=== PATIENT | male | born 1960 | race Caucasian/White ===

== ENCOUNTER → 2016-10-09 | Outpatient (CLI) | payer BC ==
--- NOTE | 2016-10-09 16:29 | US ---
EXAMINATION TYPE: US kidneys/renal and bladder DATE OF EXAM: 10/09/2016 4:15 PM COMPARISON: See PACS CLINICAL HISTORY: Renal Cyst N28.1. EXAM MEASUREMENTS: Right Kidney: 10.1 x 5.4 x 5.5 cm Left Kidney: 11.0 x 5.7 x 6.7 cm Findings: Right Kidney: No hydronephrosis or masses seen Left Kidney: There are 3 hypoechoic nodules within the left kidney. 2 largest measures 4 and 4.7 cm c ompatible simple cyst. The smaller lesion is too small to characterize and measures 1.5 cm. Bladder: not distended, not well visualized There is no evidence for hydronephrosis at this point in time. No nephrolithiasis is seen. The urin per bladder is anechoic. Bilateral ureteral jets are seen. IMPRESSION: There are 2 simple cyst within the left kidney and a smaller 1.5 cm lesion which does not meet the cr iteria of a simple cyst appears to contain an internal septation. Likely representing Bosniak classif ication 2 cyst.
== END | disposition home or self-care (01) ==
LOC: RADUSMAIN 15:45
PROVIDERS: ATTEND Urology
DX: N28.1 Cyst of kidney, acquired (principal)
CPT/HCPCS: 76770

== ENCOUNTER → 2017-11-12 | Outpatient (CLI) | payer BC ==
--- NOTE | 2017-11-12 12:50 | US ---
EXAMINATION TYPE: US kidneys/renal and bladder DATE OF EXAM: 11/12/2017 COMPARISON: US CLINICAL HISTORY: Renal Cyst N28.1; left renal cysts; prostatectomy due to CA EXAM MEASUREMENTS: Right Kidney: 10.9 x 7.3 x 4.5 cm Left Kidney: 11.2 x 6.0 x 6.1 cm Post Void Residual Volume: 7.8 mL Right Kidney: lower cortical cyst = 1.2 x 1.1 x 1.1cm Left Kidney: multiple cysts superior pole with largest at cortex = 5.2 x 4.1 x 4.5cm Bladder: wnl Bilateral Jets seen: Yes Normal Post Void Residual: Yes IMPRESSION: Bilateral renal cysts.
== END | disposition home or self-care (01) ==
LOC: RADUSWWP 08:04
PROVIDERS: ATTEND Urology
DX: N28.1 Cyst of kidney, acquired (principal)
CPT/HCPCS: 76770

== ENCOUNTER → 2018-12-19 | Outpatient (CLI) | payer BC ==
--- NOTE | 2018-12-19 15:05 | CT ---
EXAMINATION TYPE: CT angio chest DATE OF EXAM: 12/19/2018 COMPARISON: 09/09/2015 HISTORY: known thoracic aneurysm CT DLP: 483.2 mGycm CONTRAST: CTA thoracic aorta with 3-D reconstruction is performed and with IV Contrast, patient injected with 1 00 mL of Isovue 370. Contrast CTA of the thoracic aorta was performed from the lung apex through the upper abdomen. 3D re construction imaging obtained at a separate workstation. CT Chest: THORACIC AORTA: Ascending thoracic aortic aneurysm measures 4.3 cm AP dimension versus 4 cm previousl y Mild atheromatous changes seen. There is no evidence for dissection or periaortic collection. LUNGS: The lungs are clear and free of infiltrate or atelectasis. No pulmonary nodule or mass is det ected. No pleural effusion or CT evidence of interstitial lung disease. MEDIASTINUM: No evidence for mediastinal hematoma. The heart is not enlarged. No evidence for med iastinal mass or adenopathy. HILAR STRUCTURES: No evidence for mass. No hilar adenopathy is appreciated. OTHER: No significant abnormality. IMPRESSION- Slight interval progression of ascending thoracic aortic aneurysm without complicating factor.
== END | disposition home or self-care (01) ==
LOC: RADCTMAIN 13:25
PROVIDERS: ATTEND Internal Medicine Interventional Cardiology
DX: I71.2 Thoracic aortic aneurysm, without rupture (principal)
CPT/HCPCS: 82565; 84520; 71275; 36415; Q9967

== ENCOUNTER → 2018-12-19 | Outpatient (CLI) | payer BC ==
--- NOTE | 2018-12-19 15:26 | US ---
EXAMINATION TYPE: US renals and bladder DATE OF EXAM: 12/19/2018 COMPARISON: NONE CLINICAL HISTORY: N28.1 renal cyst. Renal cysts EXAM MEASUREMENTS: Right Kidney: 11.0 x 5.7 x 5.9 cm Left Kidney: 12.3 x 5.3 x 5.5 cm Right Kidney: cystic area = 1.4 x 1.1 x 1.4cm Left Kidney: 2 adjacent cysts vs. septated cyst upper pole = 7.8 x 4.8 x 5.6cm Bladder: Limited by incomplete distention demonstrates no definite abnormality. Bilateral Jets seen: yes IMPRESSION: No hydronephrosis or nephrolithiasis bilaterally. Bilateral simple appearing renal cysts. The largest measures 7.8 cm increased in size from the prior exam where it measured 5.2 cm.
== END | disposition home or self-care (01) ==
LOC: RADUSMAIN 13:31
PROVIDERS: ATTEND Urology
DX: N28.1 Cyst of kidney, acquired (principal)
CPT/HCPCS: 76770

== ENCOUNTER 2019-05-07 08:55 | Emergency (ER) | payer BC ==
[2019-05-07 09:03] VITALS: RESP 16
[2019-05-07] MEDS ORDERED: KETOROLAC 60 MG/2 ML VIAL IM STA (09:20)
[2019-05-07] MEDS ORDERED: ACET/COD 300 MG/30 MG STARTER PACK 6 TAB BTL PO STA (09:20)
[2019-05-07] MEDS ORDERED: ORPHENADRINE 30 MG/ML 2 ML VIAL IM STA (09:20)
--- NOTE | 2019-05-07 09:24 | ED ---
Upper Extremity HPI - General Chief Complaint: Extremity Injury, Upper Stated Complaint: shoulder injury Time Seen by Provider: 05/07/19 09:04 Source: patient, RN notes reviewed, old records reviewed Mode of arrival: ambulatory Limitations: no limitations - History of Present Illness Initial Comments: This Patient is a 58-year-old male who presents mention her in today for complaints of right shoulder injury. Patient reports he had a history of chronic right shoulder dislocations and he had a surgical repair of his for this in 2007. Patient states that he was walking his large dog yesterday and the dog was pulling the leash. Patient states that since that time has had pain with any range of motion of the shoulder. He states that the pain seemed to get worse a few hours after he took the dog walking. Patient reports that his shoulder feels swollen. States he is having no numbness or tingling down the arm. He denies any elbow pain or hand or wrist pain. Patient is right-handed. - Related Data Home Medications Medication Instructions Recorded Confirmed Aspirin 81 mg PO DAILY 07/29/15 07/30/15 Lisinopril [Zestril] 10 mg PO DAILY 07/29/15 07/30/15 Omeprazole [PriLOSEC] 20 mg PO AC-BRKFST 07/29/15 07/30/15 metFORMIN HCL [Glucophage] 500 mg PO BID 07/29/15 07/30/15 Previous Rx's Medication Instructions Recorded HYDROcodone/APAP 5-325MG [[place] 1 tab PO Q6HR PRN #30 tab 07/31/15 5-325] Cyclobenzaprine [Flexeril] 10 mg PO TID #12 tab 05/07/19 Naproxen [EC-Naprosyn] 500 mg PO BID #20 tablet. 05/07/19 traMADol HCL [Ultram] 50 mg PO Q4HR PRN 3 Days #18 tab 05/07/19 Allergies Allergy/AdvReac Type Severity Reaction Status Date / Time No Known Allergies Allergy Verified 05/07/19 09:03 Review of Systems ROS Statement: Those systems with pertinent positive or pertinent negative responses have been documented in the HPI. ROS Other: All systems not noted in ROS Statement are negative. Past Medical History Past Medical History: Cancer, Diabetes Mellitus, GERD/Reflux, Hypertension Additional Past Medical History / Comment(s): hx. prostate cancer 2013 History of Any Multi-Drug Resistant Organisms: None Reported Past Surgical History: Cholecystectomy, Hernia Repair, Orthopedic Surgery, Prostate Surgery Additional Past Surgical History / Comment(s): prostatectomy, right shoulder surg., ELBOW SURGERY 07/30/2015 Past Anesthesia/Blood Transfusion Reactions: No Reported Reaction Past Psychological History: No Psychological Hx Reported Smoking Status: Never smoker Past Alcohol Use History: Occasional Past Drug Use History: None Reported - Past Family History Father Brother(s) Family Medical History: Cancer Additional Family Medical History / Comment(s): prostate General Exam - General Exam Comments Initial Comments: This is a 58-year-old male. Alert and oriented. No distress. Limitations: no limitations General appearance: alert, in no apparent distress Head exam: Present: atraumatic, normocephalic, normal inspection Eye exam: Present: normal appearance, PERRL, EOMI. Absent: scleral icterus, conjunctival injection, periorbital swelling ENT exam: Present: normal exam, mucous membranes moist Neck exam: Present: normal inspection Respiratory exam: Present: normal lung sounds bilaterally. Absent: respiratory distress, wheezes, rales, rhonchi, stridor Extremities exam: Present: normal inspection, full ROM, normal capillary refill. Absent: tenderness, pedal edema, joint swelling, calf tenderness Right Shoulder Exam: Present: swelling (over deltoid). Absent: normal inspection, full ROM (unable to abduct greated than 10 degrees. ) Elbow exam: Present: normal inspection, full ROM Forearm Wrist exam: Present: normal inspection, full ROM Hand Wrist exam: Present: normal inspection, full ROM Neuro motor exam: Present: wrist extension intact, thumb opposition intact, thumb IP flexion intact, thumb adduction intact, fingers 2-5 abduction intact Vascular: Present: normal capillary refill Back exam: Present: normal inspection Neurological exam: Present: alert, oriented X3, CN II-XII intact Psychiatric exam: Present: normal affect, normal mood Skin exam: Present: warm, dry, intact, normal color. Absent: rash Course Vital Signs 05/07/19 08:59 Temperature 98.2 F Pulse Rate 82 Respiratory 16 Rate Blood Pressure 166/94 O2 Sat by Pulse 98 Oximetry Medical Decision Making - Medical Decision Making This is a 58-year-old male presents today for complaints of right shoulder pain. At this time Patient reports it started after he was walking his dog and struck pulled the shoulder. X-ray was reviewed and negative for fracture. Extensive surgical changes noted. Patient was sent is on pulse or sensation of the arm. Patient was placed in an arm sling. 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 All questions answered return parameters were discussed. - Radiology Data Radiology results: report reviewed Acute fracture or dislocation of the right shoulder. Old deformity of the superior lateral femoral head is noted. Extensive superficial change within the shoulder with 4 migdalia in the glenohumeral joint. Disposition Clinical Impression: Rotator cuff disorder Disposition: HOME SELF-CARE Condition: Good Instructions (If sedation given, give patient instructions): Rotator Cuff Tendinitis (ED) Additional Instructions: Patient is advised to follow-up with primary care physician and ortho. Patient should return to the emergency department if any alarming signs or symptoms occur. Prescriptions: Naproxen [EC-Naprosyn] 500 mg PO BID #20 tablet. Cyclobenzaprine [Flexeril] 10 mg PO TID #12 tab traMADol HCL [Ultram] 50 mg PO Q4HR PRN 3 Days #18 tab PRN Reason: Pain Is patient prescribed a controlled substance at d/c from ED?: No Referrals: Lia Gomez MD [Primary Care Provider] - 1-2 days Denzel Mckeon MD [Medical Doctor] - 1-2 days Time of Disposition: 10:14
--- NOTE | 2019-05-07 09:38 | XR ---
EXAMINATION TYPE: XR shoulder complete RT DATE OF EXAM: 05/07/2019 CLINICAL HISTORY: Injury with pain. TECHNIQUE: Three views of the right shoulder are obtained. COMPARISON: None. FINDINGS: There is no acute fracture/dislocation evident in the right shoulder. [id number] n arrowing with mild spurring acromioclavicular joint. Extensive surgical change with 4 large fixating migdalia glenohumeral joint. Moderate to advanced degenerative change with narrowing and spurring. Athena-Sachs type deformity superior lateral humeral head noted. Visualized ribs are intact. IMPRESSION: There is no acute fracture or dislocation in the right shoulder.
[2019-05-07 10:42] VITALS: BP 141/78; PULSE 79; TEMP 98
== END 2019-05-07 10:40 | disposition home or self-care (01) ==
LOC: EC 08:55
DX: M67.911 Unspecified disorder of synovium and tendon, right shoulder (principal); I10 Essential (primary) hypertension; E11.9 Type 2 diabetes mellitus without complications; K21.9 Gastro-esophageal reflux disease without esophagitis; Z79.82 Long term (current) use of aspirin; Z79.84 Long term (current) use of oral hypoglycemic drugs; Z79.899 Other long term (current) drug therapy; Z85.46 Personal history of malignant neoplasm of prostate; Z90.79 Acquired absence of other genital organ(s)
CPT/HCPCS: 73030; 99284; J2360; J1885

== ENCOUNTER → 2021-06-16 | Outpatient (CLI) | payer BC ==
--- NOTE | 2021-06-17 09:26 | CT ---
EXAMINATION TYPE: CT angio chest DATE OF EXAM: 06/16/2021 COMPARISON: CTA 12/19/2018 HISTORY: thoracic aneurysm w/o rupture, f/u CT DLP: 680.8 mGycm Automated exposure control for dose reduction was used. CONTRAST: CTA scan of the thorax is performed with IV Contrast, patient injected with 100 mL of Isovue 370, pul monary embolism protocol. MIP images are created and reviewed. 3D reconstructed images are created on an independent workstation and reviewed. FINDINGS: LUNGS: The lungs are grossly clear, there is no concerning parenchymal mass or nodule identified. T here is no pleural effusion or pneumothorax seen. The tracheobronchial tree is patent. AORTA: Root of the aorta measures approximately 4.9 cm as on prior, proximal ascending aorta 4.5 cm as on prior, proximal descending aorta 2.5 cm. At the level of the hiatus the aorta measures 2.6 cm. For super aortic branch vessels are present. MEDIASTINUM: There is satisfactory enhancement of the pulmonary artery and its branches, there is no CT evidence for pulmonary embolism. There are no greater than 1 cm hilar or mediastinal lymph nodes. No pericardial effusion is seen. OTHER: Multiple cortical cysts are associated with the upper pole the left kidney. Postop changes no cristian to the right shoulder. There is thoracic spondylosis present, spinal curvature. IMPRESSION: AORTIC ANEURYSM IS STABLE
== END | disposition home or self-care (01) ==
LOC: RADCTMAIN 18:00
PROVIDERS: ATTEND Internal Medicine Interventional Cardiology
DX: I71.2 Thoracic aortic aneurysm, without rupture (principal)
CPT/HCPCS: 82565; 84520; 71275; 36415; Q9967

== ENCOUNTER → 2023-11-30 | Outpatient (CLI) | payer BC ==
[2023-11-30 17:55] LABS: Chol/HDL Ratio 3.31 Ratio; LDL Cholesterol,Calculated 87.4 mg/dL (0.0-131.0)
[2023-11-30 18:35] LABS: C-Peptide 3.59 ng/mL (0.81-3.85)
[2023-11-30 19:17] LABS: PSA Annual Screen <0.014 ng/mL (0.000-4.000)
== END | disposition home or self-care (01) ==
LOC: LABWHC1 09:42
PROVIDERS: ATTEND Internal Medicine
DX: E55.9 Vitamin D deficiency, unspecified (principal); E11.9 Type 2 diabetes mellitus without complications; R53.83 Other fatigue; Z13.220 Encounter for screening for lipoid disorders; Z12.5 Encounter for screening for malignant neoplasm of prostate
CPT/HCPCS: 80061; 84443; 83525; 82306; 84681; 83036; 36415; G0103

== ENCOUNTER → 2024-06-09 | Outpatient (CLI) | payer BC ==
[2024-06-09 12:51] LABS: African American GFR (CKD) 88 (>60 ml/min/1.73 sqM); Blood Urea Nitrogen 25 mg/dL (9-20); Non-African American GFR(CKD) 76 (>60 ml/min/1.73 sqM)
--- NOTE | 2024-06-09 23:11 | CT ---
EXAMINATION TYPE: CT angio chest CT DLP: 889 mGycm, Automated exposure control for dose reduction was used. DATE OF EXAM: 06/09/2024 1:29 PM COMPARISON: CT chest 06/16/2021, 12/19/2018 CLINICAL INDICATION:Male, 63 years old with history of I71.20 THORACIC AORTIC ANEURYSM, WITHOUT RUPTU RE,; thoracic aneurysm TECHNIQUE/CONTRAST: CT noncontrast imaging of the chest was performed followed by CTA scan of the thorax is performed wit h IV Contrast, patient injected with 100 mL of Isovue 370. MIP images are created and reviewed. FINDINGS: Lungs/Pleura: No evidence of focal consolidation, pleural effusion or pneumothorax. No suspicious pul monary nodules or masses. Airway: Large airways are patent. Heart: Heart is within normal limits for size. Moderate coronary arterial calcifications. No pericard ial effusion. Vasculature: No evidence for intramural hematoma or dissection. Four-vessel aortic arch. Stable aorti c root aneurysm dilatation of 4.8 cm, previously 4.9 cm. Stable ascending aortic aneurysm measuring 4 .5 cm, Previously 4.5 cm. Stable descending thoracic aorta measuring up to 2.5 cm, previously 2.6 cm. No evidence of pulmonary embolism. Mediastinum: No evidence of adenopathy. Musculoskeletal: No acute osseous abnormalities. Surgical anchor identified within the right scapula. Soft Tissues: Unremarkable. Lower neck: No significant findings. Upper Abdomen: Postcholecystectomy changes changes. Stable left renal 4.8 cm cyst with thin periphera l calcification. Additional superior pole left renal cyst is no longer visualized. IMPRESSION: Stable aneurysmal dilatation of the aortic root and descending thoracic aorta. [facility], , 06/09/2024 11:09 PM
== END | disposition home or self-care (01) ==
LOC: RADCTMAIN 12:14
PROVIDERS: ATTEND Internal Medicine Interventional Cardiology
DX: I71.23 Aneurysm of the descending thoracic aorta, without rupture (principal)
CPT/HCPCS: 36415; 71275; 82565; 84520

== ENCOUNTER 2024-08-28 07:39 | Day surgery (SDC) | payer BC ==
[2024-08-24 14:59] VITALS: BMI 28.5
[2024-08-28 08:11] VITALS: TEMP 97.5
[2024-08-28 08:18] LABS: Glucose,Whole Blood 144 mg/dL (70-110)
[2024-08-28] MEDS: IV FLUID CONTINUATION 1,000 ML IV ONE (08:18)
[2024-08-28] MEDS: LACTATED RINGERS 1,000 ML IV SCH (08:18)
[2024-08-28] MEDS ORDERED: PROPOFOL 10 MG/ML 20 ML VIAL IV ONE (08:31)
--- NOTE | 2024-08-28 08:55 | P.PCN ---
Date of Procedure: 08/28/24 Preoperative Diagnosis: Screening History of polyp Postoperative Diagnosis: Ascending colon polyp Transverse colon polyp Diverticulosis Procedure(s) Performed: Colonoscopy with hot snare polypectomy Anesthesia: MAC Surgeon: Selvin Busby Pathology: other (Ascending colon polypTransverse colon polyp) Condition: stable Disposition: same day Indications for Procedure: 63-year-old male presents today for screening colonoscopy. He does have history of polyps. Denies any blood in his stool. No family history of colon cancer Operative Findings: Ascending colon polyp Transverse colon Diverticulosis Description of Procedure: The patient was brought to the endoscopy suite and placed in left lateral decubitus position and adequate sedation was achieved using conscious sedation. Digital rectal exam was performed and mild internal hemorrhoids were palpated. An endoscope was then placed in the rectum and advanced to the cecum as identified by landmarks including the appendiceal orifice and the ileocecal valve. The prep was good. The colonoscope was then slowly withdrawn, examining for any mucosal abnormalities. The cecum, ascending, transverse, descending and sigmoid colon were visualized adequately. There were no large neoplastic lesio ns noted throughout the colon. Ascending colon polyp was noted and this was removed with hot snare polypectomy. Similarly, a transverse colon polyp was encountered and this was also removed with hot snare polypectomy. Mild amount of diverticulosis was noted in both the ascending and descending colon. Hemostasis was maintained. Retroflexion was performed in the rectum and hemorrhoids. Excess air was removed, the colonoscope withdrawn and the procedure terminated. The patient was then transferred to the recovery unit in stable condition. Repeat colonoscopy should be performed in 5 years.
[2024-08-28 09:26] VITALS: BP 141/90; PULSE 84; RESP 16
== END 2024-08-28 09:37 | disposition home or self-care (01) ==
LOC: ORWHC2ENDO 07:39
PROVIDERS: ATTEND Surgery
DX: Z12.11 Encounter for screening for malignant neoplasm of colon (principal); D12.2 Benign neoplasm of ascending colon; D12.3 Benign neoplasm of transverse colon; K57.30 Diverticulosis of large intestine without perforation or abscess without bleeding; I10 Essential (primary) hypertension; E11.9 Type 2 diabetes mellitus without complications; Z79.84 Long term (current) use of oral hypoglycemic drugs; Z79.899 Other long term (current) drug therapy; Z86.0100 Personal history of colon polyps, unspecified; Z98.890 Other specified postprocedural states
CPT/HCPCS: 88305; 45385; J2704